=== PATIENT | male | born 1950 | race Caucasian/White ===

== ENCOUNTER 2018-03-12 01:30 | Inpatient (IN) | payer OTHER, MEDICARE ==
[~2018-03-12] VITALS: Ht 165.1 cm; Wt 109.3 kg
[~2018-03-12 01:30] MED LIST: ATORVASTATIN CA20 M1 PO; ATORVASTATIN CA20 MG PO; BYDUREON2 MG SC; CHLORASEPTI1 LOZ/PAC PO; CLARITIN10 M1 PO; CLOPIDOGREL75 MG PO; COUMADIN5 M2 PO; COUMADIN7.5 M1 PO; FUROSEMIDE40 M1 PO; FUROSEMIDE40 MG PO; GLIPIZIDE5 MG PO; GLUCOPHAGE1000 M1 PO; LEVEMIR 10100 UNITS/ SC; LIDODERM 5% PAT1 PAT EXT; LISINOPRIL10 MG PO; LISINOPRIL20 MG PO; LISINOPRIL40 M1 PO; LOPRESSOR50 M1 PO; MASON NATURAL2000 IU PO; METFORMIN HYD1000 MG PO; METOPROLOL TART50 MG PO; NOVOLOG100 U/ML SC; PANTOPRAZOLE SO40 M1; PANTOPRAZOLE SO40 M1 PO; PANTOPRAZOLE SO40 MG PO; PERCOCET 5-3251 EACH PO; REGLAN10 MG PO; ROXICODONE5 MG PO; TYLENOL500 MG PO; ULORIC80 M1 PO; ULORIC80 MG PO; ULTRAM(MONOGRAP50 MG PO; VICTOZA 2-0.6 MG/0.1 SC; VITAMIN B COMP1 EACH PO; VITAMIN B11000 MCG/M IM; VITAMIN C100 M1 PO; VITAMIN D1000 UNIT PO; WARFARIN SODIUM5 M1 PO; WARFARIN SODIUM5 MG PO
--- NOTE | 2018-03-12 09:48 | Operative Report ---
Operative/Inv Procedure Report Surgery Date: 03/12/18 Name of Procedure: Laparoscopic Sleeve Gastrectomy Pre-Operative Diagnosis: Morbid Obesity BMI 43, DM, HTN, HERMANN, A. fib Post-Operative Diagnosis: Same Estimated Blood Loss: less than 50ml Surgeon/Warehouse Order Filler: Kelvin Amin DO Anesthesia: general endotracheal tube IV Fluids: 1000 cc Drains: None Specimens: Stomach Complications: None Condition: Stable Operative Indication: This is a 67-year-old male that presented to the office for workup for bariatric surgery. After appropriate workup was completed I discussed with the patient the band, the sleeve, and the gastric bypass. The patient chose to undergo a sleeve gastrectomy. All risks including but not limited to bleeding, infection, leak, stricture, injury to surrounding bowel/esophagus/stomach/liver/spleen, long-term reflux, DVT/PE, and mortality of 12/999 patients were discussed in detail. The patient understood everything and decided to proceed. Operative/Procedure Note Note: The patient was brought to the operating room and placed on the operating room table in supine position. Venodyne stockings were placed and adequate general endotracheal anesthesia was obtained. The patient was prepped and draped in standard surgical fashion. Began the procedure by making a 2 cm transverse incision supraumbilically and slightly to the left of the midline. Then using a 12 mm clear Visiport and a 10 mm 0 laparoscope, the abdominal cavity was accessed. Great care was taken to go through the anterior rectus sheath, the posterior rectus sheath, and through the peritoneum. Once we entered the peritoneum the abdominal cavity was insufflated to 15 mmHg. Upon initial examination no obvious gross pathology was seen. Accessory trocars were placed, 5 mm in the epigastrium for the Anabel liver retractor. The retractor was inserted and the liver was retracted anteriorly exposing the hiatus, no hiatal hernia was seen. 5 mm ports were placed in the right and left upper quadrant, a 5 mm left lateral port, and a 15 mm right lateral port. Began the procedure by mobilizing the greater curvature of the stomach approximately 7 cm from the pylorus. Once the retrogastric space was reached the whole greater curvature was mobilized maintaining hemostasis using Harmonic scalpel. Full hiatal dissection was performed, no hiatal hernia was seen. Posterior adhesions were taken down using Harmonic scalpel as well. Once the stomach was adequately mobilized a 38 Bengali bougie was inserted and placed along the lesser curvature of the stomach. Once the bougie was in the appropriate position we began creating our sleeve, two 60 mm black staple loads with seamguard followed by three 60 mm purple staple loads with seamguard as well and finished with a 45 mm plain purple load. Great care was taken to leave ample room at the incisura angularis, to prevent any twisting or kinking of the sleeve, to stay lateral to the esophagogastric fat pad, and to do a full fundal excision. At the completion of the staple line the staple line was examined, it appeared intact and no obvious bleeding was noted. The bougie was removed, the sleeve was lying nicely without any twisting or kinking. The resected stomach was removed through the right lateral port site. The port and the left upper quadrant were irrigated until clear. All ports were removed under direct visualization no obvious bleeding was noted. The 15 mm port site fascia was closed using 0 Vicryl suture. The skin was closed using 4-0 Monocryl. Steri-Strips and dressings were placed. The patient was successfully extubated and transferred to the recovery room in stable condition. The patient tolerated the procedure well with no complications. Findings: No hiatal hernia, 38 Fr bougie CC: Alberta Lewis MD
--- NOTE | 2018-03-12 10:13 | Admission Core Measures ---
Acute Coronary Syndrome (CM) ACS Core Measures Acute Coronary Syndrome Diagnosis No Congestive Heart Failure (NEW) CHF Core Measures Congestive Heart Failure Diagnosis No Cerebrovascular Accident (NEW) CVA Core Measures CVA/TIA Diagnosis No Venous Thromboembolism VTE Core Marisol (View Protocol) VTE Risk Factors Surgery No Mechanical VTE Prophylaxis d/t N/A MechProphylax Ordered No VTE Pharm Prophylaxis d/t NA PharmProphylax ordered Problem List As ranked by this Provider includes Assessment & Plan 1. S/P laparoscopic sleeve gastrectomy 2. Morbid obesity 3. GERD 4. Atrial fibrillation 5. Benign essential hypertension 6. Obstructive sleep apnea syndrome HOME MEDS Home Med List Atorvastatin Calcium 20 MG TABLET 1 TAB PO DAILY CHOLESTEROL (Reported) Cholecalciferol (Vitamin D3) (Vitamin D) 1,000 UNIT TABLET 1 TAB PO DAILY SUPPLEMENT (Reported) Febuxostat (Uloric) 80 MG TABLET 1 TAB PO DAILY GOUT (Reported) Furosemide 40 MG TABLET 1 TAB PO BID BP (Reported) Liraglutide (Victoza 2-Moncho) 0.6 MG/0.1 ML PEN.INJCTR 1.8 MG SC DAILY DIABETES (Reported) Lisinopril 40 MG TABLET 1 TAB PO DAILY BP (Reported) Metformin HCl (Glucophage) 1,000 MG TABLET 1 TAB PO DAILY DIABETES (Reported) Metoprolol Tartrate (Lopressor) 50 MG TABLET 1 TAB PO BID BP (Reported) Vitamin B Complex 1 EACH CAPSULE 1 CAP PO DAILY SUPPLEMENT (Reported) Warfarin Sodium (Coumadin) 5 MG TABLET 1 TAB PO DAILY Afib (Reported) Warfarin Sodium (Coumadin) 7.5 MG TABLET 1 TAB PO DAILY afib (Reported)
--- NOTE | 2018-03-12 10:15 | Surg Short-stay <48hrs Dis Sum ---
Visit Information Visit Dates Admission Date: 03/12/18 Discharge Date: 03/14/18 Surgical Short Stay DC Summary Admission Diagnosis: Morbid Obesity BMI 43, DM, HTN, HERMANN, afib Final Diagnosis: SAME ABOVE, S/P Surgery Date: 03/12/18 Name of Procedure: Laparoscopic Sleeve Gastrectomy Procedure(s): Surgery Date: 03/12/18 Name of Procedure: Laparoscopic Sleeve Gastrectomy Summary/Significant Findings: Electively scheduled laparoscopic sleeve gastrectomy on 03/12/18 by . Upper gi study on POD#1 negative for leak / obstruction. Started on stage 1 bariatric diet, which he is tolerating. Coumadin resumed on 03/13/18 evening. Venous ultrasound studies done on bilateral lower extremities for calf tenderness that he reports was present pre-op, negative for dvt. Discharge to home 03/14/18. Condition at Discharge: STABLE Discharge Disposition: home or self care Discharge instructions provided to patient/family: Yes Post discharge follow-up plan: 1 week follow up appointment with ok to resume coumadin Copies to: Joshua JARVIS,[place]
--- NOTE | 2018-03-12 10:16 | Patient Discharge Instructions ---
Discharge Instructions General Discharge Information You were seen/treated for: Morbid Obesity BMI 43, DM, HTN, HERMANN, A. fib You had these procedures: Surgery Date: 03/12/18 Name of Procedure: Laparoscopic Sleeve Gastrectomy Acute Coronary Syndrome Inclusion Criteria At DC or during hospital stay patient has or had the following: ACS DIAGNOSIS No Discharge Core Measures Meds if any: Prescribed or Continued at Discharge Meds if any: NOT Prescribed or Continued at Discharge Congestive Heart Failure Inclusion Criteria At DC or during hospital stay patient has or had the following: CHF DIAGNOSIS No Discharge Core Measures Meds if any: Prescribed or Continued at Discharge Meds if any: NOT Prescribed or Continued at Discharge Cerebrovascular accident Inclusion Criteria At DC or during hospital stay patient has or had the following: CVA/TIA Diagnosis No Discharge Core Measures Meds if any: Prescribed or Continued at Discharge Meds if any: NOT Prescribed or Continued at Discharge Venous thromboembolism Inclusion Criteria VTE Diagnosis No VTE Type NONE VTE Confirmed by (Test) NONE Discharge Core Measures - Per Current guidelines, there needs to be overlap - treatment for the first 5 days of Warfarin therapy. - If discharged on Warfarin prior to 5 days of - overlap therapy, the patient will need to be - assessed for post discharge needs including - *Post discharge parental anticoagulation - *Warfarin and/or parental anticoagulation education - *Follow up date to check INR post discharge At least 5 days overlap therapy as Inpatient No Meds if any: Prescribed or Continued at Discharge Note: Overlap Therapy is Warfarin and Anticoagulant Meds if any: NOT Prescribed or Continued at Discharge
[2018-03-12 11:08] VITALS: BP 160/78
--- NOTE | 2018-03-12 13:42 | PN- Bariatrics ---
Subjective Subjective: Patient report gas pain and bleching. He reports voiding. He reports having one cup of his stage 1 diet. Per nursing, while transporting the patient from the stretcher to bed, his IV came out and blood squirted into the nurses mouth. Consent was obtained from the patient for hiv/hep labs. He offers no other complaits. Objective Vital Signs and I&Os Vital Signs Date Time Temp Pulse Resp B/P B/P Pulse O2 O2 Flow FiO2 Mean Ox Delivery Rate 03/12 1436 Room Air 03/12 1400 93 Room Air 03/12 1110 93 Room Air 03/12 1108 98.1 72 16 160/78 93 Room Air Intake & Output 03/12 1600 03/12 0800 03/12 0000 03/11 1600 03/11 0800 03/11 0000 Intake Total 370 Output Total 300 Balance 70 Intake, IV 250 Intake, Oral 120 Output, Urine 300 Patient 238 lb Weight Weight Bed scale Measurement Method Physical Exam: Gen - awake an alert in nad Cardiac - S1S2 noted Lungs - CTAB Abd - soft, obese, 6 lap sites noted, 2 with scant sanguineous drainage, bowel sounds hypoactive, appropriately tender sammy-incisionally, no rebound or guarding noted Ext - alps in place, no edema or calf tenderness B/L Current Medications: Current Medications Sig/Tenzin Start time Last Medication Dose Route Stop Time Status Admin Acetaminophen 1,000 MG Q6 03/12 1600 AC N/A 1 UNIT IV 03/13 1214 Cefazolin Sodium 2,000 MG IQ8 03/12 1600 CAN IV 03/13 0001 Cefazolin Sodium 2 GM IQ8 03/12 1600 AC N/A 1 UNIT IV 03/13 0029 Cefazolin Sodium 2,000 MG ONCE 03/12 0000 DC IV 03/12 2359 Dexamethasone 8 MG ONCE PRN 03/12 1200 AC IV PUSH Dextrose/Sodium 1,000 ML Q8H 03/12 1200 AC 03/12 Chloride IV 1218 Fentanyl Citrate 200 MCG .STK-MED ONE 03/12 0646 DC IM 03/12 0647 Heparin Sodium 5,000 UNIT Q8 03/12 1400 AC 03/12 (Porcine) SC 1338 Heparin Sodium 0 .STK-MED ONE 03/12 0655 DC (Porcine) .ROUTE Heparin Sodium 5,000 UNIT ONCE 03/12 0000 DC (Porcine) SC 03/12 2359 Hydrocodone Bitart/ 15 ML Q6P PRN 03/12 1200 AC 03/12 Acetaminophen PO 1219 Insulin Aspart 0 Q6 03/12 1200 AC 03/12 SC 1253 Metoprolol Tartrate 50 MG BID 03/12 2200 AC PO Midazolam HCl 4 MG .STK-MED ONE 03/12 0646 DC IM 03/12 0647 Morphine Sulfate 2 MG Q4-6 PRN PRN 03/12 1200 AC IV Ondansetron HCl 4 MG Q6P PRN 03/12 1200 AC IV Pantoprazole Sodium 40 MG DAILY 03/13 1000 AC IV Simethicone 40 MG Q6P PRN 03/12 1200 AC PO Results Last 48 Hours of Labs: Laboratory Tests 03/12 0607 Coagulation PT (9.4 - 12.5 SEC) 16.0 H INR (0.90 - 1.17) 1.53 H Assessment/Plan Assessment/Plan 67 M POD 0 s/p lap sleeve Cont stg 1 bariatric diet, IVF NPO after midnight for possible UGI Postop abx - ancef x2 Pain regimen prn ISS on board w/ accuchecks DVT ppx - alps, hsq, restart coumadin for afib on 03/13 pm GI ppx - protonix Cont metoprolol Home CPAP tonight TRC, encourage IS use Encourage oob ambulation F/u HIV/Hep labs, contact nurse involved if postive Core Measures Venous Thromboembolism VTE Risk Factors Surgery No Mechanical VTE Prophylaxis d/t N/A MechProphylax Ordered No VTE Pharm Prophylaxis d/t NA PharmProphylax ordered
[2018-03-12 15:12] VITALS: BP 146/77
[2018-03-12 19:22] VITALS: BP 152/70
[2018-03-13 06:15] VITALS: BP 156/90
[2018-03-13 08:14] LABS: ABSOLUTE BASOPHIL COUNT 0 /CUMM (0.0-0.2); ABSOLUTE EOSINOPHIL COUNT 0 /CUMM (0.0-0.7); ABSOLUTE GRANULOCYTE CT 6.2 /CUMM (1.4-6.5); ABSOLUTE LYMPH COUNT 0.7 /CUMM (1.2-3.4); ABSOLUTE MONOCYTE COUNT 0.5 /CUMM (0.10-0.60); BASOPHIL % 0.2 % (0.0-2.0); EOSINOPHIL % 0 % (0-5)
[2018-03-13 08:25] LABS: MEAN CORPUSCULAR HGB 29.6 PG (27.0-31.0); MEAN CORPUSCULAR HGB CONC 33.5 G/DL (33.0-37.0); MEAN CORPUSCULAR VOLUME 88.1 FL (80.0-94.0); MEAN PLATELET VOLUME 9.5 FL (7.4-10.4); PLATELET COUNT 158 /CUMM (130-400); RBC DISTRIBUTION WIDTH 15.8 % (11.5-14.5); RED BLOOD CELL CT 3.78 /CUMM (4.70-6.10); WHITE BLOOD CELL COUNT 7.5 /CUMM (4.8-10.8)
[2018-03-13 08:29] LABS: PT 18.1 SEC (9.4-12.5)
[2018-03-13 08:31] LABS: HEMATOCRIT 33.3 % (42-52)
[2018-03-13 08:44] LABS: GRANULOCYTE % 83.3 % (42.2-75.2)
--- NOTE | 2018-03-13 08:48 | PN- Bariatrics ---
See Addendum Subjective Subjective: Patient reports gas pain which is subsiding and bleching. He reports passing flatus. He reports ambulating in the halls yesterday. He reports nausea with stage one diet ovenight into this morning. Objective Vital Signs and I&Os Vital Signs Date Time Temp Pulse Resp B/P B/P Pulse O2 O2 Flow FiO2 Mean Ox Delivery Rate 03/13 0823 66 156/90 03/13 0615 98.3 66 24 156/90 96 Room Air 03/12 2105 98.6 69 16 150/70 03/12 2000 96 Room Air 03/12 1922 98.6 71 16 152/70 97 Room Air 03/12 1800 95 Room Air 03/12 1512 98.5 79 18 146/77 95 Room Air 03/12 1436 Room Air 03/12 1400 93 Room Air 03/12 1110 93 Room Air 03/12 1108 98.1 72 16 160/78 93 Room Air Intake & Output 03/13 1600 03/13 0800 03/13 0000 03/12 1600 03/12 0800 03/12 0000 Intake Total 500 305 555 Output Total 1140 550 500 Balance -640 -245 55 Intake, IV 500 125 375 Intake, Oral 0 180 180 Output, Urine 1140 550 500 Patient 241 lb 238 lb Weight Weight Bed scale Measurement Method Physical Exam: Gen - awake an alert in nad Cardiac - S1S2 noted Lungs - CTAB Abd - soft, obese, 6 lap sites noted, 2 with scant sanguineous drainage, bowel sounds hypoactive, appropriately tender sammy-incisionally, no rebound or guarding noted Ext - alps in place, no edema or calf tenderness B/L Current Medications: Current Medications Sig/Tenzin Start time Last Medication Dose Route Stop Time Status Admin Acetaminophen 1,000 MG Q6 03/12 1600 AC 03/13 N/A 1 UNIT IV 03/13 1214 0539 Cefazolin Sodium 2,000 MG IQ8 03/12 1600 CAN IV 03/13 0001 Cefazolin Sodium 2 GM IQ8 03/12 1600 DC 03/13 N/A 1 UNIT IV 03/13 0029 0049 Cefazolin Sodium 2,000 MG ONCE 03/12 0000 DC IV 03/12 2359 Dexamethasone 8 MG ONCE PRN 03/12 1200 AC IV PUSH Dextrose/Sodium 1,000 ML Q8H 03/12 1200 AC 03/13 Chloride IV 0540 Heparin Sodium 5,000 UNIT Q8 03/12 1400 AC 03/13 (Porcine) SC 0538 Heparin Sodium 5,000 UNIT ONCE 03/12 0000 DC (Porcine) SC 03/12 2359 Hydrocodone Bitart/ 15 ML Q6P PRN 03/12 1200 AC 03/12 Acetaminophen PO 1219 Insulin Aspart 0 Q6 03/12 1200 AC 03/13 SC 0118 Metoprolol Tartrate 50 MG BID 03/12 2200 AC 03/13 PO 0823 Morphine Sulfate 2 MG Q4-6 PRN PRN 03/12 1200 AC 03/13 IV 0827 Ondansetron HCl 4 MG Q6P PRN 03/12 1200 AC IV Pantoprazole Sodium 40 MG DAILY 03/13 1000 AC IV Simethicone 40 MG Q6P PRN 03/12 1200 AC 03/12 PO 1718 Results Last 48 Hours of Labs: Laboratory Tests 03/13 03/12 0645 0607 Chemistry Sodium Pending Potassium Pending Chloride Pending Carbon Dioxide Pending Anion Gap Pending BUN Pending Creatinine Pending BUN/Creatinine Ratio Pending Glucose Pending Magnesium Pending Coagulation PT (9.4 - 12.5 SEC) 18.1 H 16.0 H INR (0.90 - 1.17) 1.65 H 1.53 H Hematology CBC w Diff NO MAN DIFF REQ WBC (4.8 - 10.8 /CUMM) 7.5 RBC (4.70 - 6.10 /CUMM) 3.78 L Hgb (14.0 - 18.0 G/DL) 11.2 L Hct (42 - 52 %) 33.3 L MCV (80.0 - 94.0 FL) 88.1 MCH (27.0 - 31.0 PG) 29.6 MCHC (33.0 - 37.0 G/DL) 33.5 RDW (11.5 - 14.5 %) 15.8 H Plt Count (130 - 400 /CUMM) 158 MPV (7.4 - 10.4 FL) 9.5 Gran % (42.2 - 75.2 %) 83.3 H Lymphocytes % (20.5 - 51.1 %) 9.8 L Monocytes % (1.7 - 9.3 %) 6.7 Eosinophils % (0 - 5 %) 0 Basophils % (0.0 - 2.0 %) 0.2 Absolute Granulocytes (1.4 - 6.5 /CUMM) 6.2 Absolute Lymphocytes (1.2 - 3.4 /CUMM) 0.7 L Absolute Monocytes (0.10 - 0.60 /CUMM) 0.5 Absolute Eosinophils (0.0 - 0.7 /CUMM) 0 Absolute Basophils (0.0 - 0.2 /CUMM) 0 Assessment/Plan Assessment/Plan 67 M POD 1 s/p lap sleeve with nausea UGI this morning Keep NPO on IVF Pain/antinausea regimen prn ISS on board w/ accuchecks DVT ppx - alps, hsq, restart coumadin for afib tonight GI ppx - protonix Cont metoprolol TRC, encourage IS use Encourage oob ambulation F/u am labs and HIV/Hep labs, contact nurse involved if postive Will d/w Dr. Amin Core Measures Venous Thromboembolism VTE Risk Factors Surgery No Mechanical VTE Prophylaxis d/t N/A MechProphylax Ordered No VTE Pharm Prophylaxis d/t NA PharmProphylax ordered
--- NOTE | 2018-03-13 12:34 | RADIOLOGY REPORT ---
EXAMINATION: FLUOROSCOPY UPPER GI WITH GASTROGRAFIN WITH KUB CLINICAL INFORMATION: 1 day status post sleeve gastrectomy. Rule out leak/obstruction. Postoperative evaluation. COMPARISON: None. TECHNIQUE: A preliminary bin filler view of the abdomen was performed. A limited Gastrografin upper GI study was performed using 30 ml of Gastroview with the patient in the semiupright position. Multiple (5) spot films and 3 cine fluoroscopy runs were acquired. FINDINGS: The preliminary bin filler view of the abdomen demonstrates postsurgical suture line in the epigastric region. Normal bowel gas pattern is seen without abnormal bowel distention noted. Moderate degenerative changes as seen in the thoracolumbar spine. There is mild esophageal dysmotility with hypotonia of the mid and distal esophagus seen, leading to transient delay in esophageal emptying and incomplete esophageal emptying. Intermittent mild tertiary contractions are seen. The GE junction is located below the level of the diaphragm and no GE reflux seen. The remnant gastric pouch is normal with no abnormal distention or contrast leak seen. There is prompt emptying of contrast into the duodenum, which is unremarkable in appearance. FLUOROSCOPY TIME: 33 seconds. IMPRESSION: 1. Esophageal dysmotility and hypotonia with delayed and incomplete esophageal emptying noted. 2. No evidence of contrast leak or gastric outlet obstruction.
[2018-03-13 14:45] VITALS: BP 130/68
[2018-03-13 21:22] VITALS: BP 132/62
[2018-03-14 06:10] VITALS: BP 138/76
[2018-03-14 07:34] VITALS: BP 138/76
[2018-03-14 08:24] LABS: PT 25.6 SEC (9.4-12.5)
--- NOTE | 2018-03-14 08:49 | PN- Bariatrics ---
Subjective Subjective: Reports occasional nausea. Tolerating stage 1 diet. Passing flatus and +bm yesterday. Upper gi study done yesterday negative for leak / obstruction. Walking without difficulty. No dizziness. No shortness of breath. No chest pains. Voiding well. Coumadin restarted last night. Anticipates discharge to home today. Objective Vital Signs and I&Os Vital Signs Date Time Temp Pulse Resp B/P B/P Pulse O2 O2 Flow FiO2 Mean Ox Delivery Rate 03/14 0734 138/76 03/14 0610 98.1 60 20 138/76 95 Room Air 03/14 0600 Room Air 03/13 2200 Room Air 03/13 2122 98.3 74 18 132/62 97 Room Air 03/13 2058 70 132/62 03/13 1445 98.2 60 18 130/68 97 03/13 1400 97 Room Air Intake & Output 03/14 1600 03/14 0800 03/14 0000 03/13 1600 03/13 0800 03/13 0000 Intake Total 1240 1490 500 305 Output Total 950 316 882 1369 750 Balance 290 -800 890 -640 -445 Intake, IV 1000 1010 500 125 Intake, Oral 240 480 0 180 Output, Urine 950 934 059 9921 750 Patient 241 lb Weight Physical Exam: General - alert & oriented x 3. out of bed to chair. no acute distress. Lungs - clear bilaterally. no w/r/r. Cardiac - s1s2 Abdomen - soft. port dressing saturated (changed). no drains. expected sammy- incisional tenderness. Extremities - warm bilaterally. varicosities appreciated bilateral lower legs. chronic venous stasis changes b/l. calf tenderness bilaterally. Current Medications: Current Medications Sig/Tenzin Start time Last Medication Dose Route Stop Time Status Admin Acetaminophen 1,000 MG Q6 03/12 1600 DC 03/13 N/A 1 UNIT IV 03/13 1214 1157 Dexamethasone 8 MG ONCE PRN 03/12 1200 AC IV PUSH Dextrose/Sodium 1,000 ML Q8H 03/12 1200 DC 03/14 Chloride IV 0542 Heparin Sodium 5,000 UNIT Q8 03/12 1400 DC 03/13 (Porcine) SC 03/13 1405 1430 Hydrocodone Bitart/ 15 ML Q6P PRN 03/12 1200 AC 03/14 Acetaminophen PO 0609 Insulin Aspart 0 Q6 03/12 1200 AC 03/13 SC 0118 Metoprolol Tartrate 50 MG BID 03/12 2200 AC 03/14 PO 0734 Morphine Sulfate 2 MG Q4-6 PRN PRN 03/12 1200 AC 03/13 IV 2212 Ondansetron HCl 4 MG Q6P PRN 03/12 1200 AC 03/14 IV 0608 Pantoprazole Sodium 40 MG DAILY 03/13 1000 AC 03/14 IV 0734 Simethicone 40 MG Q6P PRN 03/12 1200 AC 03/12 PO 1718 Warfarin Sodium 5 MG COUMADIN 1700 ONE 03/13 1700 DC 03/13 PO 03/13 1701 1616 Results Last 48 Hours of Labs: Laboratory Tests 03/14 03/13 0635 0645 Chemistry Sodium (137 - 145 mmol/L) 139 Potassium (3.5 - 5.1 mmol/L) 3.7 Chloride (98 - 107 mmol/L) 102 Carbon Dioxide (22 - 30 mmol/L) 24 Anion Gap (5 - 16) 13 BUN (9 - 20 mg/dL) 21 H Creatinine (0.7 - 1.2 mg/dL) 0.9 Estimated GFR (>60 ml/min) > 60 BUN/Creatinine Ratio (7 - 25 %) 23.3 Glucose (65 - 99 mg/dL) 143 H Magnesium (1.6 - 2.3 mg/dL) 1.8 Coagulation PT (9.4 - 12.5 SEC) 25.6 H 18.1 H INR (0.90 - 1.17) 2.33 H 1.65 H Hematology CBC w Diff NO MAN DIFF REQ WBC (4.8 - 10.8 /CUMM) 7.5 RBC (4.70 - 6.10 /CUMM) 3.78 L Hgb (14.0 - 18.0 G/DL) 11.2 L Hct (42 - 52 %) 33.3 L MCV (80.0 - 94.0 FL) 88.1 MCH (27.0 - 31.0 PG) 29.6 MCHC (33.0 - 37.0 G/DL) 33.5 RDW (11.5 - 14.5 %) 15.8 H Plt Count (130 - 400 /CUMM) 158 MPV (7.4 - 10.4 FL) 9.5 Gran % (42.2 - 75.2 %) 83.3 H Lymphocytes % (20.5 - 51.1 %) 9.8 L Monocytes % (1.7 - 9.3 %) 6.7 Eosinophils % (0 - 5 %) 0 Basophils % (0.0 - 2.0 %) 0.2 Absolute Granulocytes (1.4 - 6.5 /CUMM) 6.2 Absolute Lymphocytes (1.2 - 3.4 /CUMM) 0.7 L Absolute Monocytes (0.10 - 0.60 /CUMM) 0.5 Absolute Eosinophils (0.0 - 0.7 /CUMM) 0 Absolute Basophils (0.0 - 0.2 /CUMM) 0 Assessment/Plan Assessment/Plan This 67 year old male with hx morbid obesity (BMI 43), DM, HTN, HERMANN, and afib, is POD#2 s/p lap sleeve gastrectomy, restarted on coumadin yesterday with therapeutic INR today tolerating stage 1 diet. d/c iv fluids accuchecks stable bp stable with continued metoprolol (holding lisinopril and lasix) continue coumadin daily. monitor INR. hep sc stopped yesterday f/u venous ultrasounds bilateral lower legs r/o dvt oob/ambulation protonix - gi ppx d/c home today once venous ultrasound study complete / reviewed will d/w Core Measures Venous Thromboembolism VTE Risk Factors Surgery No Mechanical VTE Prophylaxis d/t N/A MechProphylax Ordered No VTE Pharm Prophylaxis d/t NA PharmProphylax ordered
[2018-03-14] MEDS ORDERED: ZOFRAN4 M2 PO (09:04)
[2018-03-14] MEDS ORDERED: HYDROCODON-ACET15 ML PO (09:04)
--- NOTE | 2018-03-14 10:52 | ULTRASOUND REPORT ---
EXAMINATION: US TRIPLEX OF LOWER EXTREMITIES, BILATERAL CLINICAL INFORMATION: History of morbid obesity. Status post sleeve gastrectomy COMPARISON: Report from prior ultrasound 07/18/2012. TECHNIQUE: Color-flow triplex imaging with spectral analysis and compression Doppler were performed on the lower extremities. FINDINGS: Respiratory variation, normal compression and augmented flow are noted throughout the lower extremities. The visualized common femoral vein, superficial femoral vein, profunda femoral vein, popliteal vein and midcalf peroneal and posterior tibial venous segments show no evidence of deep venous thrombosis. There are some superficial venous varicosities in the calf with linear internal echogenicity. There is no Rice's cyst. IMPRESSION: No evidence of deep vein thrombosis in the lower extremities bilaterally. There are superficial venous varicosities in the calf with linear internal echogenicity which could represent calcification of chronic thrombus. Given the curvilinear appearance, a foreign body such as a catheter or wire are consideration in the appropriate clinical setting.
== END 2018-03-14 12:09 | DRG 621 ==
LOC: SDA 01:30 → 2NB 01:30 → ENRESERV 10:13 → ENTRNSPT 10:53 → EDTRNSPT 11:00 → EDTRNSPTSTS 11:00 → 2NB 11:21 → CMPTRNSPT 11:24 → 2NB 03-14 12:09
PROVIDERS: Physician Assistant; Physician Assistant Surgical; Surgery
PROC: 0DB64Z3 Excision of Stomach, Percutaneous Endoscopic Approach, Vertical (ICD-10-PCS; principal; 2018-03-12)
DX: E66.01 Morbid (severe) obesity due to excess calories (principal); E11.8 Type 2 diabetes mellitus with unspecified complications; I48.91 Unspecified atrial fibrillation; I50.9 Heart failure, unspecified; Z68.41 Body mass index [BMI] 40.0-44.9, adult; K21.9 Gastro-esophageal reflux disease without esophagitis; Z79.4 Long term (current) use of insulin; Z79.84 Long term (current) use of oral hypoglycemic drugs; Z79.01 Long term (current) use of anticoagulants; G47.33 Obstructive sleep apnea (adult) (pediatric); I11.0 Hypertensive heart disease with heart failure; I25.10 Atherosclerotic heart disease of native coronary artery without angina pectoris; M10.9 Gout, unspecified; K58.9 Irritable bowel syndrome, unspecified; E78.5 Hyperlipidemia, unspecified; Z96.652 Presence of left artificial knee joint
CPT/HCPCS: 2NBP; 36415; 36592; 71046; 74240; 82436; 88307; 93970; C9399; J0131; J0690; J1100; J1644; J2405; J7042